=== PATIENT | male | born 1960 | race Caucasian/White ===

== ENCOUNTER 2016-08-17 11:59 | Emergency (ER) | payer MEDICAID, MEDICARE ==
[~2016-08-17] VITALS: Ht 165.1 cm; Wt 68.0 kg
[~2016-08-17 11:59] MED LIST: CLOZ100T PO
[2016-08-17 13:20] VITALS: BP 134/77
== END 2016-08-17 13:22 | disposition home or self-care (01) ==
LOC: ER 12:01
DX: B86 Scabies (principal); F20.9 Schizophrenia, unspecified
CPT/HCPCS: 99283; A4606; Z7610

== ENCOUNTER 2016-09-14 14:31 | Emergency (ER) | payer MEDICARE ==
[~2016-09-14] VITALS: Ht 167.6 cm; Wt 58.5 kg
[2016-09-14 15:29] VITALS: BP 126/71
== END 2016-09-14 15:49 | disposition home or self-care (01) ==
LOC: ER 14:33
DX: L03.116 Cellulitis of left lower limb (principal); F20.9 Schizophrenia, unspecified
CPT/HCPCS: 99283; A4606; Z7610

== ENCOUNTER 2016-09-23 16:39 | Emergency (ER) | payer MEDICARE ==
[~2016-09-23] VITALS: Ht 170.2 cm; Wt 68.0 kg
[2016-09-23 16:39] VITALS: BP 138/77
[2016-09-23] MEDS ORDERED: diphenhydrAMINE HCL/ZINC ACET CREAM 28.3 GM TUBE TP PRN (17:30)
== END 2016-09-23 17:32 | disposition home or self-care (01) ==
LOC: ER 16:40
DX: B86 Scabies (principal); I10 Essential (primary) hypertension; F20.9 Schizophrenia, unspecified
CPT/HCPCS: A4606; Z7610

== ENCOUNTER 2016-09-24 11:01 | Emergency (ER) | payer MEDICARE ==
[~2016-09-24] VITALS: Ht 167.6 cm; Wt 54.4 kg
[2016-09-24 11:08] VITALS: BP 122/81
== END 2016-09-24 11:16 | disposition home or self-care (01) ==
LOC: ER 11:03
DX: Z76.0 Encounter for issue of repeat prescription (principal); B86 Scabies; F20.9 Schizophrenia, unspecified
CPT/HCPCS: 99283; A4606; Z7610

== ENCOUNTER 2016-09-27 15:45 | Emergency (ER) | payer MEDICARE ==
[~2016-09-27] VITALS: Ht 167.6 cm; Wt 72.6 kg
[2016-09-27 16:30] VITALS: BP 131/61
== END 2016-09-27 18:18 | disposition home or self-care (01) ==
LOC: ER 15:47
DX: B86 Scabies (principal); F20.9 Schizophrenia, unspecified
CPT/HCPCS: 99282; A4606; Z7610

== ENCOUNTER 2016-10-18 14:18 | Inpatient (IN) | payer MEDICARE, MEDICAID ==
[~2016-10-18] VITALS: Ht 170.2 cm; Wt 64.9 kg
--- NOTE | 2016-10-18 14:45 | NUR ---
PT BIB BROTHER C/O GENERALIZED ITCHING AND RASH AND LLE REDNESS/SWELLING. RESP EVEN UNLABORED. SKIN WARM NONDIAPHORETIC. NO OTHER COMPLAINTS. IN ER BED 11.
[2016-10-18] MEDS ORDERED: CLINDAMYCIN 600 MG in IV D5W 100 ML IV ONE (15:00)
[2016-10-18] MEDS ORDERED: IV NS 0.9% 500 ML BAG IV ONE (15:00)
[2016-10-18 15:12] LABS: BASOPHILS # (AUTO) 0.2 /CMM (0.0-0.2); BASOPHILS % (AUTO) 1.4 % (0.0-2.0); EOSINOPHILS # (AUTO) 0.1 /CMM (0.0-0.7); EOSINOPHILS % (AUTO) 0.9 % (0.0-6.0); HEMATOCRIT 42 % (39-51); HEMOGLOBIN 13.8 g/dL (13.5-17.5); LYMPHOCYTES # (AUTO) 1.2 /CMM (0.8-4.8); LYMPHOCYTES % (AUTO) 9.4 % (20.0-44.0); MEAN CORPUSCULAR HEMOGLOBIN 29 PG (26.0-33.0); MEAN CORPUSCULAR HGB CONC 33 g/dl (31.0-36.0); MEAN CORPUSCULAR VOLUME 90 fL (80-96); MONOCYTES # (AUTO) 0.8 /CMM (0.1-1.30); MONOCYTES % (AUTO) 5.9 % (2.0-12.0); NEUTROPHILS # (AUTO) 10.9 /CMM (1.8-8.9); NEUTROPHILS % (AUTO) 82.4 % (43.0-81.0); PLATELET COUNT (AUTO) 301 /CMM (150-450); RDW COEFFICIENT OF VARIATION 13.8 (11.5-15.0); RED BLOOD CELL COUNT(AUTO) 4.71 MIL/uL (4.5-6.0); WHITE BLOOD COUNT (AUTO) 13.2 K/uL (4.3-11.0)
[2016-10-18] MEDS ORDERED: IV SET PRIMARY PUMP SET 1 EA INFUS.SET MC ONE ×2 (15:18→18:39)
[2016-10-18] MEDS ORDERED: IV SET PRIMARY 1 EA INFUS.SET MC ONE (15:18)
[2016-10-18] MEDS ORDERED: IV NS 0.9% 500 ML IV ONE (15:18)
[2016-10-18 15:22] LABS: CALCIUM, SERUM 8.4 mg/dL (8.5-10.1); CARBON DIOXIDE 30 mmol/L (21-32); CHLORIDE 105 mmol/L (98-107); GFR 77 mL/min (>60); GLUCOSE 115 mg/dL (74-106); POTASSIUM 3.2 mmol/L (3.5-5.1); SODIUM SERUM 142 mmol/L (136-145); UREA NITROGEN, BLOOD 11 mg/dL (7-18)
[2016-10-18 15:26] LABS: INR 1.11 (0.87-1.13); PROTHROMBIN TIME 11.6 SECS (9.5-12.7)
[2016-10-18 15:28] LABS: ALANINE AMINOTRANSFERASE 15 U/L (12-78); ALBUMIN 2.9 g/dL (3.4-5.0); ALKALINE PHOSPHATASE 149 U/L (46-116); ASPARTATE AMINOTRANSFERASE 17 U/L (15-37); BILIRUBIN,DIRECT 0.2 mg/dL (0.0-0.2); BILIRUBIN,TOTAL 0.5 mg/dL (0.2-1.0); TOTAL PROTEIN, SERUM 6.6 g/dL (6.4-8.2)
[2016-10-18 15:30] LABS: TROPONIN I < 0.017 ng/mL (0.00-0.056)
--- NOTE | 2016-10-18 15:41 | NUR ---
CALLED MEAT COOLER FOR MED/SURG PLACEMENT ISOLATION FOR POSSIBLE SCABIES
--- NOTE | 2016-10-18 15:48 | NUR ---
MEAL TRAY PROVIDED PER PT REQUEST
--- NOTE | 2016-10-18 16:26 | NUR ---
PT GOING TO ROOM 105 MED SURG
--- NOTE | 2016-10-18 16:35 | NUR ---
REPORT GIVEN TO CRIS MCCALLUM FOR ADMISSION
--- NOTE | 2016-10-18 16:45 | NUR ---
REPORT WAS GIVEN TO PANEL PHYSICIAN AND PT IS READY TO GO UP TO ROOM 105
--- NOTE | 2016-10-18 17:15 | NUR ---
PT TRANSPORTED TO RM 105 IN STABLE CONDITION
--- NOTE | 2016-10-18 17:20 | NUR ---
RN INITIAL NOTES RECEIVED REPORT FOR ER, PT IS A/O X 4, ABLE TO MAKE NEEDS KNOWN, PT IS ON RA, SATING WELL, NO C/O OF DISTRESS OR SOB AT THIS TIME, NO C/O OF PAIN OR DISCOMFORT AT THIS TIME, PT HAS RAC # 20G, C/D/I/PATENT, FLUSHING WELL, NO S/S OF INFECTION/ INFILTRATION NOTED AT THIS TIME, PT IS NOTED WITH GENERALIZED RASH, PHOTOS TAKEN AND PUT IN CHART, ALL ORDERS ACK, ALL SAFETY MEASURES IN PLACE AT ALL TIMES, CALL LIGHT WITHIN EASY REACH, ISOLATION PRECAUTIONS OBSERVED AT ALL TIMES, WILL MONITOR PT CLOSELY
[2016-10-18 18:00] VITALS: BP 120/69
[2016-10-18] MEDS ORDERED: HYDROCODONE/APAP 5/325MG 1 EACH TABLET PO PRN (18:30)
[2016-10-18] MEDS ORDERED: MAG HYDROX/AL HYDROX/SIMETH 30 ML UDC PO PRN (18:30)
[2016-10-18] MEDS ORDERED: MAGNESIUM HYDROXIDE 30 ML UDC PO PRN (18:30)
[2016-10-18] MEDS ORDERED: MORPHINE SULFATE INJ 2 MG/ML DISP.SYRIN IV PRN (18:30)
[2016-10-18] MEDS ORDERED: IVERMECTIN 3 MG TABLET PO ONE ×2 (18:30→19:00)
[2016-10-18] MEDS ORDERED: PERMETHRIN 5% CRM 60 GM TUBE TP ONE (18:30)
[2016-10-18] MEDS ORDERED: LORAZEPAM INJ 2 MG/ML VIAL IV PRN (18:30)
[2016-10-18] MEDS ORDERED: ONDANSETRON HCL/PF 4 MG/2 ML VIAL IVP PRN (18:30)
[2016-10-18] MEDS ORDERED: Z GUARD REMEDY 2 OZ OINT TP PRN (18:30)
[2016-10-18] MEDS ORDERED: ACETAMINOPHEN 325 MG TABLET PO PRN (18:30)
[2016-10-18] MEDS: IV NS 0.9% 1,000 ML IV PRN (18:49)
--- NOTE | 2016-10-18 19:11 | NUR ---
RN CLOSING NOTE PT RESTING IN BED COMFORTABLY, ALL MD ORDERS CARRIED OUT. PT KEPT CLEAN AND DRY. IV C/D/I. PATENT. ALL SAFETY MEASURES IN PLACE AT ALL TIMES. REPORT WILL BE GIVEN TO PM RN FOR NOEMI.
--- NOTE | 2016-10-18 19:30 | NUR ---
RN NOTES RECEIVED PT AWAKE ALERT ORIENTED X 3 ABLE TO MAKE KNOWN NEEDS. NO ACUTE RESP DISTRESS SATING 98% IN RA. ON STRICTLY OBSERVATION FOR ISOLATION DUE TO POSSIBLE SCABIES. WAITING FOR ELIMITE CREAM TO SEND. PT MADE AWARE REGARDING PLAN OF CARE VERBALIZED UNDERSTANDING . IV SITE ON RAC G 20 RUNNING WITH NS @ 75CC/HR INTACT AND PATENT, NO INFILTRATION SHOWS. BED LOCKED AND SECURED. KEPT PT CLEAN AND COMFORTABLE IN BED. WILL CONTINUE TO MONITOR.
[2016-10-18 20:00] VITALS: BP 129/74
[2016-10-18] MEDS ORDERED: SECONDARY IV SET 1 EA INFUS.SET MC ONE (20:19)
[2016-10-18] MEDS ORDERED: CLINDAMYCIN IV RTU IN D5W 900 MG/50 ML PIGGYBACK IV SCH (22:00)
[2016-10-18] MEDS: CLINDAMYCIN 900 MG in IV D5W 50 ML IV SCH (22:21)
[2016-10-18] MEDS: ZOLPIDEM TARTRATE 5 MG TABLET PO PRN (23:56)
[2016-10-19 04:00] VITALS: BP 111/73
[2016-10-19] MEDS ORDERED: CLINDAMYCIN 900 MG/6 ML VIAL ONE (05:34)
[2016-10-19] MEDS ORDERED: IV D5W 50 ML IV ONE (05:44)
[2016-10-19] MEDS: CLINDAMYCIN 900 MG in IV D5W 50 ML IV SCH ×2 (05:54→13:17)
--- NOTE | 2016-10-19 06:36 | NUR ---
RN NOTES PT ASLEEP WELL ON BED AFTER SLEEPING PILL GIVEN. BREATHING EVEN AND UNLABORED. DENIES PAIN THROUGHOUT THE SHIFT. ALL NEEDS ATTENDED. KEPT PT IN ISOLATION FOR POSS. SCABIES. WILL ENDORSED TO SHOWER THE PATIENT AFTER 12 HOURS OF ELIMITE. KEPT PT CLEAN AND COMFORTABLE IN BED, WILL ENDORSED CONTINUITY OF CARE TO AM NURSE.
[2016-10-19 08:00] VITALS: BP 135/84
--- NOTE | 2016-10-19 08:00 | NUR ---
RN INITIAL NOTE PT RECEIVED IN BED RESTING COMFORTABLY,. RESPIRATIONS ARE EVEN AND UNLABORED. NO S/S OF RESPIRATORY DISTRESS OR SOB. SATING WELL ON ROOM AIR. SKIN WARM AND DRY TO TOUCH. PT STATES NOT IN PAIN. IV SITE C/D/I. FLUSHED AND PATENT. SKIN WARM AND DRY. PT SCRATCHING. ISOLATION PRECAUTIONS OBSERVED. SAFETY MEASURES IMPLEMENTED. BED IN LOCKED, LOW POSITION, TWO SIDE RAILS UP,. CALL LIGHT WITHIN REACH. WILL CONTINUE TO MONITOR.
[2016-10-19] MEDS: PANTOPRAZOLE 40 MG TABLET.DR PO SCH (08:05)
[2016-10-19] MEDS: CLOZAPINE 100 MG TABLET PO SCH (08:05)
[2016-10-19] MEDS: diphenhydrAMINE HCL 50 MG/ML VIAL IV PRN ×3 (08:05→22:52)
[2016-10-19 08:06] LABS: BASOPHILS % (AUTO) 0.4 % (0.0-2.0); EOSINOPHILS # (AUTO) 0.3 /CMM (0.0-0.7); EOSINOPHILS % (AUTO) 2.8 % (0.0-6.0); HEMATOCRIT 39 % (39-51); HEMOGLOBIN 12.7 g/dL (13.5-17.5); LYMPHOCYTES % (AUTO) 17.4 % (20.0-44.0); MEAN CORPUSCULAR HEMOGLOBIN 30 PG (26.0-33.0); MEAN CORPUSCULAR HGB CONC 33 g/dl (31.0-36.0); MEAN CORPUSCULAR VOLUME 91 fL (80-96); MONOCYTES % (AUTO) 8.7 % (2.0-12.0); NEUTROPHILS # (AUTO) 8.3 /CMM (1.8-8.9); NEUTROPHILS % (AUTO) 70.7 % (43.0-81.0); PLATELET COUNT (AUTO) 283 /CMM (150-450); RDW COEFFICIENT OF VARIATION 14.3 (11.5-15.0); RED BLOOD CELL COUNT(AUTO) 4.27 MIL/uL (4.5-6.0); WHITE BLOOD COUNT (AUTO) 11.7 K/uL (4.3-11.0)
[2016-10-19 08:19] LABS: CALCIUM, SERUM 7.7 mg/dL (8.5-10.1); CREATININE 0.9 mg/dL (0.6-1.3); MAGNESIUM 1.8 mg/dL (1.8-2.4); PHOSPHORUS 3.7 mg/dL (2.5-4.9); POTASSIUM 3.3 mmol/L (3.5-5.1)
[2016-10-19] MEDS ORDERED: POTASSIUM CHLORIDE 20 MEQ TAB.PRT.SR PO ONE (10:00)
--- NOTE | 2016-10-19 11:54 | NUR ---
WOUND CARE CONSULT: PATIENT SEEN AND SKIN ASSESSMENT DONE. PATIENT ALERT, INDEPENDENT WITH BED MOBILITY, CONTINENT, STEFFI 18. SEE TODAY'S SKIN ASSESSMENT IN PCS ALONG WITH RECOMMENDATIONS. RECOMMEND SKIN AND MOISTURE PROTECTION MEASURES ORDERED. ALL DISCUSSED WITH NURSING STAFF. MD IN AGREEMENT WITH PLAN OF CARE. Addendum: 10/19/16 at 1156 by ANTONINA DAVIS WNDNU Amended: Links added.
[2016-10-19 16:00] VITALS: BP 117/69
[2016-10-19] MEDS: NEOMY SULF/BACITRAC ZN/POLY 15 GM TUBE TP SCH (16:14)
[2016-10-19] MEDS: LORATADINE 10 MG TABLET PO SCH (18:47)
--- NOTE | 2016-10-19 19:15 | NUR ---
RN CLOSING NOTE PT RESTING IN BED COMFORTABLY, WILL GIVE REPORT TO PM RN FOR NOEMI
[2016-10-19 20:00] VITALS: BP_SYST 119; BP_DIAS 74; BP_DIAS 79
--- NOTE | 2016-10-19 20:00 | NUR ---
RN NOTES PT AWAKE ON BED. NO SOB NOTED. AOX4 ABLE TO MAKE KNOWN NEEDS. SATING WELL IN RA. RASHES ALL OVER THE BODY SPECIALLY BOTH ARMS. ISOLATION PRECAUTION CONTINUE FOR POSSIBLE SCABIES. WILL APPLIED ELIMITE ORDERED. DENIES PAIN AFEBRILE. AMBULATE WELL INSTRUCTED PT NOT TO GO OUTSIDE THE ROOM DUE TO ISOLATION. HEALTH TEACHING RENDERED. VERBALIZED UNDERSTANDING. KEPT PT CLEAN AND COMFORTABLE IN BED. WILL CONTINUE TO MONITOR.
[2016-10-19] MEDS ORDERED: PERMETHRIN 5% CRM 60 GM TUBE TP ONE (21:00)
[2016-10-19] MEDS: SULFAMETH/TRIMETH 800/160 MG 1 UDTAB TABLET PO SCH (21:12)
[2016-10-20] MEDS: IV NS 0.9% 1,000 ML IV PRN (02:35)
[2016-10-20 04:00] VITALS: BP 120/75
--- NOTE | 2016-10-20 06:30 | NUR ---
RN NOTES ASLEEP WELL FOR ABOUT 6 HOURS WAKING UP DUE TO ITCHINESS PRN MEDICINE REMAINED EFFECTIVE. AFEBRILE. COMPLIANT WITH CARE. STANDBY ASSISTANCE PROVIDED. REMAINED IN ISOLATION FOR POSSIBLE SCABIES. ELIMITE GIVEN LAST NIGHT AND WILL ENDORSE TO AM SHIFT TO SHOWER PT AFTER BET 8- 14 HOURS. KEPT PT CLEAN AND COMFORTABLE IN ED ALL NEEDS ATTENDED.
[2016-10-20 07:36] LABS: CALCIUM, SERUM 7.8 mg/dL (8.5-10.1); CREATININE 0.8 mg/dL (0.6-1.3); POTASSIUM 3.4 mmol/L (3.5-5.1)
[2016-10-20 08:00] VITALS: BP 100/60
[2016-10-20] MEDS: SULFAMETH/TRIMETH 800/160 MG 1 UDTAB TABLET PO SCH ×2 (09:26→21:14)
[2016-10-20] MEDS: LORATADINE 10 MG TABLET PO SCH (09:27)
[2016-10-20] MEDS: PANTOPRAZOLE 40 MG TABLET.DR PO SCH (09:27)
[2016-10-20] MEDS: CLOZAPINE 100 MG TABLET PO SCH (09:27)
[2016-10-20] MEDS: NEOMY SULF/BACITRAC ZN/POLY 15 GM TUBE TP SCH (09:31)
[2016-10-20] MEDS: TRIAMCINOLONE ACETONIDE 0.1% CR 15 GM TUBE TP SCH ×2 (09:32→17:00)
[2016-10-20] MEDS ORDERED: POTASSIUM CHLORIDE 20 MEQ TAB.PRT.SR PO ONE (10:00)
[2016-10-20 20:00] VITALS: BP 118/78
[2016-10-21 04:00] VITALS: BP 109/61
--- NOTE | 2016-10-21 06:30 | NUR ---
MS RN NOTES AWAKE & RESPONSIVE. NOT IN ANY DISTRESS. NO SOB NOTED. DENIES ANY PAIN OR DISCOMFORT AT THIS TIME. AM CARE DONE. MONITORED ACCORDINGLY. CALL LIGHT WITHIN REACH. BED IN LOWEST POSITION. SR UP X 2 FOR SAFETY. WILL ENDORSE TO NEXT SHIFT.
[2016-10-21 07:02] LABS: CALCIUM, SERUM 7.9 mg/dL (8.5-10.1); CREATININE 0.8 mg/dL (0.6-1.3); MAGNESIUM 1.8 mg/dL (1.8-2.4); POTASSIUM 3.6 mmol/L (3.5-5.1)
--- NOTE | 2016-10-21 07:20 | NUR ---
RN INTIAL NOTE PT RECEIVED FROM PM NURSE. A/OX3. TELE MONITOR SR 65. PT HAS BRP AND DIAPER CLEAN AND DRY. L HAND 22 G FLUSHED AND PATENT. NC 2L SPO2 99%. NO ACUTE S/S OF SOB. REPOSITIONED FOR SAFETYAND COMFORT. NO C/O PAIN. WILL CONTINUE TO MONITOR CLOSELY.
[2016-10-21 08:00] VITALS: BP 94/54
[2016-10-21] MEDS: LORATADINE 10 MG TABLET PO SCH (08:51)
[2016-10-21] MEDS: SULFAMETH/TRIMETH 800/160 MG 1 UDTAB TABLET PO SCH ×2 (08:51→21:03)
[2016-10-21] MEDS: CLOZAPINE 100 MG TABLET PO SCH (08:51)
[2016-10-21] MEDS: PANTOPRAZOLE 40 MG TABLET.DR PO SCH (08:51)
[2016-10-21] MEDS: TRIAMCINOLONE ACETONIDE 0.1% CR 15 GM TUBE TP SCH ×2 (08:54→17:41)
[2016-10-21] MEDS: NEOMY SULF/BACITRAC ZN/POLY 15 GM TUBE TP SCH (08:55)
[2016-10-21 16:00] VITALS: BP 113/73
--- NOTE | 2016-10-21 17:19 | NUR ---
RN NOTE PT REMOVED OFF OF ISOLATION. BED BATH GIVEN, LINEN AND GOWN CHANGED PER WENDY RN IDC.
--- NOTE | 2016-10-21 19:21 | NUR ---
RN ENDING NOTE PT A/O X2-3. PT STABLE THROUGHOUT SHIFT. REFUSED IV RE-INSERTION EDUCATED ON THE IMPORTANCE OF PLACEMENT. V/S WNL THROUGHOUT SHIFT. SAFETY MEASURES IN PLACE, ORDERS CARRIED OUT ALL MEDICATIONS GIVEN. NO C/O OF SOB AND NO PAIN. PT KEPT WARM AND DRY. GAVE REPORT TO PM NURSE FOR NOEMI.
[2016-10-21 20:00] VITALS: BP 112/67
--- NOTE | 2016-10-21 20:00 | NUR ---
CAR SALES REPRESENTATIVE: PT RECEIVED A/OX3. MED SURG STATUS, PT HAS BRP AND DIAPER CLEAN AND DRY. NO IV ACCESS PRESENT, PER PREVIOUS NURSE PT BEING REFUSED, UPON ASK TO INSERT IV PT STILL REFUSED. MD AWARE FROM PREVIOUS NURSE.NC 2L SPO2 99%. NO ACUTE S/S OF SOB. ABLE TO TURN HIMSELF. NO C/O PAIN. ONGOING MONITORING...
[2016-10-21] MEDS: ZOLPIDEM TARTRATE 5 MG TABLET PO PRN (21:04)
[2016-10-22 04:00] VITALS: BP 113/60
--- NOTE | 2016-10-22 06:17 | NUR ---
AIRPLANE TESTER; PT BEING STABLE THE WHOLE SHIFT, NO DISTRESS, SLEEPING WELL. . WILL ENDORSE CARE TO NEXT SHIFT.
--- NOTE | 2016-10-22 07:30 | NUR ---
RN NOTE RECEIVED RESTING IN BED, LAYING COMFORTABLY. A/OX3. PT HAS BRP AND DIAPER CLEAN AND DRY. NO IV ACCESS,PER PREVIOUS NURSE REPORT PT REFUSED IV INSERTION. OFFERED AGAIN, PT STILL REFUSED. MD AWARE FROM PREVIOUS NURSE. ON RA ZAK WELL, NO SOB. NOTED WITH GENERALIZED RASHES. TX AT BEDSIDE, ABLE TO TURN HIMSELF. NO C/O PAIN. CALL LIGHT WITHIN REACH
[2016-10-22 08:00] VITALS: BP 99/69
[2016-10-22] MEDS: CLOZAPINE 100 MG TABLET PO SCH (08:48)
[2016-10-22] MEDS: PANTOPRAZOLE 40 MG TABLET.DR PO SCH (08:49)
[2016-10-22] MEDS: SULFAMETH/TRIMETH 800/160 MG 1 UDTAB TABLET PO SCH (08:49)
[2016-10-22] MEDS: NEOMY SULF/BACITRAC ZN/POLY 15 GM TUBE TP SCH (08:50)
[2016-10-22] MEDS: TRIAMCINOLONE ACETONIDE 0.1% CR 15 GM TUBE TP SCH (08:50)
[2016-10-22] MEDS: LORATADINE 10 MG TABLET PO SCH (08:52)
[2016-10-22] MEDS ORDERED: CLOTRIMAZOLE 1% 15 GM TUBE TP SCH (09:00)
--- NOTE | 2016-10-22 14:32 | NUR ---
RN NOTES REPORT GIVEN TO YAHIR REAVES FROM [address] [place] [id number]. YAHIR INFORMED PT TREATED WITH IVERMECTIN ON 10/19 AND ELIMITE APPLICATION FOR SCABIES ON 10/18 AND PER MD TO REPEAT ELIMITE APPLICATION IN 7 DAYS. AND CONTINUE BACTRIM X 7 DAYS. LAST DOSE WAS GIVEN AT 0900. YAHIR VERBALIZED UNDERSTANDING. ESTIMATED TIME OF PHOTOGRAPHY INSTRUCTOR IS 1430 PER CM LATIA.
--- NOTE | 2016-10-22 14:40 | NUR ---
RN NOTES PT REFUSED PICTURE OF SKIN TO BE TAKEN, PER PT THEY ALREADY TOOK PICTURES BEFORE, PATIENT EDUCATION PROVIDED. PT STILL REFUSED. PT RIGHTS RESPECTED.
--- NOTE | 2016-10-22 15:10 | NUR ---
RN NOTES PT DISCHARGED FROM UNIT IN STABLE CONDITION. TRANSPORTED TO [address] [place] [address] VIA AMBULANCE ACCOMPANIED BY [facility]. PT VERBALIZED UNDERSTANDING THAT HE'S GOING TO SNF. PT STILL REFUSED BODY CHECK BEFORE DISCHARGE. PAPERWORK SIGNED BY PT, EXITCARE PROVIDED. DISCHARGE INSTRUCTIONS GIVEN. BELONGINGS RETURNED TO PT. VS WNL.
[2016-10-22] MEDS ORDERED: IVERMECTIN 3 MG TABLET PO ONE (17:00)
== END 2016-10-22 18:04 | DRG 603 ==
LOC: ER 14:24 → MEDSG1 16:48
PROVIDERS: ADMIT Internal Medicine; ATTEND Internal Medicine
DX: L03.114 Cellulitis of left upper limb (principal); L03.818 Cellulitis of other sites; E44.0 Moderate protein-calorie malnutrition; E87.0 Hyperosmolality and hypernatremia; R64 Cachexia; I96 Gangrene, not elsewhere classified; L03.113 Cellulitis of right upper limb; B86 Scabies; F20.9 Schizophrenia, unspecified; Z59.0 Homelessness; E87.6 Hypokalemia; B95.8 Unspecified staphylococcus as the cause of diseases classified elsewhere; D72.829 Elevated white blood cell count, unspecified; Z87.820 Personal history of traumatic brain injury; Z68.22 Body mass index [BMI] 22.0-22.9, adult; I87.2 Venous insufficiency (chronic) (peripheral); F29 Unspecified psychosis not due to a substance or known physiological condition
CPT/HCPCS: 36415; 71010-TC; 80048-TC; 80061-TC; 80076-TC; 83605-TC; 83735-TC; 84100-TC; 84484-TC; 85025-TC; 85730-TC; 87040-TC; 87081-TC; 97001-TC; A4606; J1200; J2060; J3490; J7030; J7040; J7060; Z7610

== ENCOUNTER 2016-11-07 12:25 | Emergency (ER) | payer MEDICARE, MEDICAID ==
[~2016-11-07] VITALS: Ht 170.2 cm; Wt 61.2 kg
[2016-11-07 12:25] VITALS: BP 101/70
== END 2016-11-07 14:03 | disposition home or self-care (01) ==
LOC: ER 12:29
DX: B86 Scabies (principal); L29.9 Pruritus, unspecified; F20.9 Schizophrenia, unspecified
CPT/HCPCS: 99283; A4606; Z7610

== ENCOUNTER 2016-11-16 12:47 | Inpatient (IN) | payer MEDICARE, MEDICAID ==
[~2016-11-16] VITALS: Ht 172.7 cm; Wt 63.5 kg
--- NOTE | 2016-11-16 12:55 | NUR ---
PT AMBULATORY TO ER BED 12 C/O GENERALIZED PAIN AND ITCHING X 1 WEEK AND REQUESTING REFILL FOR ATARAX. PT WAS SEEN IN ER 11/07 AND WAS TREATED FOR SCABBIES. GOWNED AND PLACED ON MONITOR. AWAITING MD GARCIA.
--- NOTE | 2016-11-16 13:15 | NUR ---
CALLED NURSING SUP. FOR MS BED
--- NOTE | 2016-11-16 13:17 | NUR ---
HASEEB MIRNADA AT BEDSIDE FOR EVAL.
[2016-11-16] MEDS ORDERED: IV NS 0.9% 1,000 ML ONE (13:22)
[2016-11-16] MEDS ORDERED: IV SET PRIMARY PUMP SET 1 EA INFUS.SET MC ONE (13:22)
[2016-11-16] MEDS ORDERED: CEFTRIAXONE 1GM BAG (ER ONLY) 50 ML IV ONE (13:22)
[2016-11-16] MEDS ORDERED: DEXAMETHASONE SOD PHOSPHATE 10 MG/ML VIAL ONE (13:22)
[2016-11-16 13:25] LABS: BASOPHILS % (AUTO) 0.4 % (0.0-2.0); EOSINOPHILS # (AUTO) 0.5 /CMM (0.0-0.7); EOSINOPHILS % (AUTO) 6.2 % (0.0-6.0); HEMATOCRIT 45 % (39-51); HEMOGLOBIN 14.3 g/dL (13.5-17.5); LYMPHOCYTES # (AUTO) 1.8 /CMM (0.8-4.8); LYMPHOCYTES % (AUTO) 23.6 % (20.0-44.0); MEAN CORPUSCULAR HEMOGLOBIN 28 PG (26.0-33.0); MEAN CORPUSCULAR HGB CONC 32 g/dl (31.0-36.0); MEAN CORPUSCULAR VOLUME 89 fL (80-96); MONOCYTES # (AUTO) 0.7 /CMM (0.1-1.30); NEUTROPHILS # (AUTO) 4.6 /CMM (1.8-8.9); NEUTROPHILS % (AUTO) 60.8 % (43.0-81.0); PLATELET COUNT (AUTO) 298 /CMM (150-450); RDW COEFFICIENT OF VARIATION 13.8 (11.5-15.0); RED BLOOD CELL COUNT(AUTO) 5.04 MIL/uL (4.5-6.0); WHITE BLOOD COUNT (AUTO) 7.6 K/uL (4.3-11.0)
[2016-11-16] MEDS ORDERED: DEXAMETHASONE SOD PHOSPHATE 10 MG/ML VIAL IV ONE (13:30)
[2016-11-16] MEDS ORDERED: CEFTRIAXONE 1 G in IV D5W 50 ML IV ONE (13:30)
[2016-11-16] MEDS ORDERED: IV NS 0.9% 1,000 ML BAG IV ONE (13:30)
[2016-11-16 13:37] LABS: CALCIUM, SERUM 8.6 mg/dL (8.5-10.1); POTASSIUM 3.6 mmol/L (3.5-5.1)
[2016-11-16 13:41] LABS: INR 1.07 (0.87-1.13); PROTHROMBIN TIME 11.1 SECS (9.5-12.7)
[2016-11-16 13:48] LABS: ALBUMIN 2.7 g/dL (3.4-5.0); BILIRUBIN,DIRECT 0.1 mg/dL (0.0-0.2); BILIRUBIN,TOTAL 0.4 mg/dL (0.2-1.0); LACTIC ACID 1.4 mmol/L (0.4-2.0); TOTAL PROTEIN, SERUM 6.4 g/dL (6.4-8.2)
--- NOTE | 2016-11-16 14:24 | NUR ---
[facility] PAGED, DR.VU FRANKLIN INSURANCE OFFICE SUPERVISOR
[2016-11-16] MEDS ORDERED: MAG HYDROX/AL HYDROX/SIMETH 30 ML UDC PO PRN ×2 (15:00→16:15)
[2016-11-16] MEDS ORDERED: Z GUARD REMEDY 2 OZ OINT TP PRN ×2 (15:00→16:15)
[2016-11-16] MEDS ORDERED: MAGNESIUM HYDROXIDE 30 ML UDC PO PRN ×2 (15:00→16:15)
[2016-11-16] MEDS ORDERED: HYDROCODONE/APAP 5/325MG 1 EACH TABLET PO PRN ×2 (15:00→16:15)
[2016-11-16] MEDS ORDERED: ZOLPIDEM TARTRATE 5 MG TABLET PO PRN ×2 (15:00→16:15)
[2016-11-16] MEDS ORDERED: ONDANSETRON HCL/PF 4 MG/2 ML VIAL IVP PRN ×2 (15:00→16:15)
[2016-11-16] MEDS ORDERED: ACETAMINOPHEN 325 MG TABLET PO PRN ×2 (15:00→16:15)
[2016-11-16] MEDS ORDERED: MORPHINE SULFATE INJ 2 MG/ML DISP.SYRIN IV PRN ×2 (15:00→16:15)
--- NOTE | 2016-11-16 15:22 | NUR ---
U/S TECH AT BEDSIDE FOR BLE DUPLEX ULTRASOUND.
[2016-11-16 16:00] VITALS: BP 124/73
--- NOTE | 2016-11-16 16:00 | NUR ---
MS2/RN OPENING NOTE PT. SITTING UP IN BED AWAKE, A&OX4. NOT IN DISTRESS, NO SOB, UNLABORED AND EVEN BREATHING. VITALS ARE STABLE, BP 124/73, PULSE 68, RR 20, PULSE OXYGEN 98%, AND TEMP. 97.1 FAHRENHEIT. PT. IS COOPERATIVE WITH ANSWERING QUESTIONS ON INITIAL ASSESSMENT. PT. DID NOT C/O PAIN. PT. IS ON CONTACT ISOLATION FOR SCABIES. IV ACCESS INTACT ON LEFT ANTECUBITAL SITE. LAST BOWEL MOVEMENT WAS ON 11/15/2016 PER PT, AND VOIDED THIS MORNING. MRSA SWAB WAS TAKEN IN EMERGENCY DEPARTMENT AND PENDING. SKIN ASSESSMENT WAS PERFORMED, SKIN AND PICTURES WERE TAKEN. PT. IS CURRENTLY LIVING WITH HIS BROTHER, AQUILINO RUELAS, PHONE NUMBER [phone].
--- NOTE | 2016-11-16 16:04 | NUR ---
REPORT GIVEN TO DARSHAN. PT AWAITING TRANSFER TO FLOOR.
--- NOTE | 2016-11-16 19:55 | NUR ---
MS RN NOTE: PATIENT RESTING IN BED, NO ACUTE DISTRESS NOTED. BREATHING EVEN AND UNLABORED, NO SOB NOTED. IV TO LAC IN PLACE. ISOLATION PRECAUTIONS OBSERVED. BED LOCKED AND IN LOWEST POSITION, CALL LIGHT IN REACH. WILL CONTINUE TO MONITOR.
[2016-11-16 20:00] VITALS: BP 126/76
[2016-11-16 20:30] VITALS: BP 126/76
--- NOTE | 2016-11-16 21:30 | NUR ---
MS RN NOTE: PATIENT REQUESTING FOR MEDICATIONS TO HELP FOR SLEEP. AMBIEN 5MG ORAL GIVEN PER MD ORDER. WILL CONTINUE TO MONITOR.
--- NOTE | 2016-11-16 23:00 | NUR ---
MS RN NOTE: RECEIVED CALL FROM PATIENT BROTHER AQUILINO, REQUESTING THAT TO BE CALLED WITH UPDATES REGARDING PATIENT. PROVIDED PHONE NUMBER. [phone]. WILL ENDORSE ONTO REPORT SHEET.
--- NOTE | 2016-11-17 06:10 | NUR ---
MS RN NOTE: PATIENT RESTING IN BED, NO ACUTE DISTRESS NOTED. BREATHING EVEN AND UNLABORED, NO SOB NOTED. IV TO LAC IN PLACE. ISOLATION PRECAUTIONS OBSERVED. BED LOCKED AND IN LOWEST POSITION, CALL LIGHT IN REACH. WILL ENDORSE TO DAY NURSE TO CONTINUE WITH PLAN OF CARE.
--- NOTE | 2016-11-17 07:10 | NUR ---
MS RN OPENING RECEIVED PATIENT A/OX4 DENIES PAIN, SOB, DIFFICULTY BREATHING. PATIENT PLEASANT AND FIDGETY THOUGH PATIENT DENIES ANXIOUSNESS. PATIENT COMPLIANT WITH ISOLATION PRECAUTIONS AND RE EDUCATED. PATIENT STATES NO NEEDS AT THIS TIME. CALL LIGHT IN REACH, BED LOWERED AND LOCKED, RAILS UPX3 FOR SAFETY AND ISOLATION PRECAUTIONS OBSERVED. PATIENT WILL BE ROUNDED Q2H OR LESS PER NEEDS
[2016-11-17] MEDS ORDERED: PANTOPRAZOLE 40 MG TABLET.DR PO SCH ×2 (07:30)
[2016-11-17 08:00] VITALS: BP 108/73
[2016-11-17] MEDS ORDERED: CLOZAPINE 100 MG TABLET PO SCH ×2 (09:00→18:00)
[2016-11-17] MEDS ORDERED: HYDR10SY15 PO (09:15)
--- NOTE | 2016-11-17 09:16 | NUR ---
MS RN NOTES ATARAX RX TAKEN FROM PATIENT. MED RECON UPDATED. AWARE. PER MD FRANKLIN OK TO DC ISOLATION IT IS NOT NEEDED
[2016-11-17] MEDS ORDERED: hydrOXYzine PAMOATE 25 MG CAPSULE PO PRN (09:30)
--- NOTE | 2016-11-17 10:47 | NUR ---
Social service consult requested by Med Surg CARTER Costa for homelessness. Per H&P report by Dr. Everett, patient is a 56-year old male with a PMHx of schizophrenia, recurrent infections of scabies, and organic brain syndrome. Patient is homeless and reports living on the streets. Specifically, patient reports living near the intersection of [facility]. Patient reported that he currently "feels fine." He stated that he has been noncompliant with his medications (i.e. Hydroxyzine HCL 25mg and Clozapine 100mg) because he needs a refill. Pt was admitted to [facility] for non healing lower extremity wounds and moderate to severe malnutrition. SW met with patient at bedside. Patient was alert and oriented x4. Pt's appearance was disheveled. Pt presented with a euthymic mood and had blunted affect. Pt reported being homeless and reported receiving SSI ($1,100/month). Pt denied any mental health symptoms such as anxiety or depression. Patient denied any suicidal or homicidal ideation. Pt reported drinking beer 1/month. He reported only drinking one beer per occasion. Pt denied the use of any other substances. Pt reported that he would like to be discharged back to the [facility] intersection once medically cleared. Pt reported that he is not interested in any resources. Pt reported that upon discharge, he would like to attempt to refill his prescriptions at [facility] ([address] [place] [address]). He reported that his brother Otto lives in the [facility] and assists him occasionally. SW will update vocational case manager regarding pt's discharge plan.
--- NOTE | 2016-11-17 11:01 | NUR ---
WOUND CARE CONSULT: PT NOT SEEN FOR SKIN ASSESSMENT DUE TO PT BEING OFF UNIT AT THIS TIME. PER NURSING STAFF, PT IS AMBULATORY AND CONTINENT. WILL SEE PRN.
--- NOTE | 2016-11-17 13:36 | NUR ---
MS PEDIATRIC SURGEON PATIENT STABLE NO COMPLICATIONS NO CHANGES THROUGHOUT DAY. PATIENT EDUCATED ON DC MATERIAL AND STATED UNDERSTANDING. PATIENT BELONGINGS ACCOUNTED FOR AND SIGNED. PATIENT SIGNED DC MATERIAL AND TAXI CALLED FOR PATIENT. PATIENT GIVEN RX AND AWARE TO FOLLOW UP WITH WOUND MD'S FOR FOLLOW UP PER DR FRANKLIN. PATIENT LEFT IN STABLE CONDITION AND ASSISTED TO TAXI BY AKOSUA WHITFIELD NO COMPLICATIONS.
== END 2016-11-17 14:15 | disposition home or self-care (01) | DRG 592 ==
LOC: ER 12:49 → MEDSG2 16:57
PROVIDERS: ADMIT Family Medicine; ATTEND Family Medicine
DX: L89.899 Pressure ulcer of other site, unspecified stage (principal); E43 Unspecified severe protein-calorie malnutrition; F20.9 Schizophrenia, unspecified; I87.2 Venous insufficiency (chronic) (peripheral); Z68.21 Body mass index [BMI] 21.0-21.9, adult
CPT/HCPCS: 36415; 80048-TC; 80076-TC; 83605-TC; 85025-TC; 85652-TC; 85730-TC; 87040-TC; 87081-TC; 93970-TC; A4606; J0696; J1100; J7030; Z7610

== ENCOUNTER 2016-11-30 00:41 | Emergency (ER) | payer MEDICARE, MEDICAID ==
[~2016-11-30] VITALS: Ht 172.7 cm; Wt 68.0 kg
[~2016-11-30 00:41] MED LIST changes: +HYDR10SY15 PO
[2016-11-30 02:08] VITALS: BP 135/78
--- NOTE | 2016-11-30 02:56 | NUR ---
CALLED PT BROTHER, HE SAID HE WILL COME AND ASSESSMENT DIRECTOR PT FROM ER WAITING ROOM.
== END 2016-11-30 02:47 | disposition home or self-care (01) ==
LOC: ER 00:41
DX: R21 Rash and other nonspecific skin eruption (principal)
CPT/HCPCS: 99281; A4606; Z7502; Z7610